=== PATIENT | male | born 1985 | race Caucasian/White ===

== ENCOUNTER 2017-03-07 10:58 | Emergency (ER) | payer OTHER ==
[2017-03-07 11:35] LABS: BASOPHIL 0.1 % (0-2); EOSINOPHIL 0 % (0-5); HCT 42.2 % (42.0-52.0); HGB 14.9 g/dl (13.2-18.0); LYMPHOCYTE 3.5 % (15-48); MCH 28.2 pg (25.0-31.0); MCHC 35.3 g/dL (32.0-36.0); MCV 79.8 fL (78.0-100.0); MONOCYTE 10.2 % (0-12); MPV 9.3 fL (6.0-9.5); NEUTROPHIL 86.2 % (41-80); PLT 234 K/uL (150-400); RBC 5.29 M/uL (4.70-6.00); RDW 13.6 % (11.5-14.0); WBC 15.7 K/uL (4.0-10.5)
[2017-03-07 11:45] LABS: BILIRUBIN 1+ mg/dL (NEGATIVE); BLOOD 3+ Ery/uL (NEGATIVE); COLOR YELLOW (YELLOW); GLUCOSE (U) 1+ mg/dL (NORMAL); KETONE (U) NEGATIVE (NEGATIVE); LEUKOCYTES 2+ Leu/uL (NEGATIVE); NITRITE POSITIVE (NEGATIVE); PROTEIN 2+ mg/dL (NEGATIVE); pH 6.5 (5.0-9.0)
[2017-03-07 11:46] LABS: CLARITY CLOUDY (CLEAR)
[2017-03-07 11:47] LABS: BACTERIA 3+; URINARY RBC RARE; URINARY WBC TNTC
[2017-03-07 11:55] LABS: AMPHETAMINES POSITIVE (NEGATIVE); BENZODIAZEPINES NEGATIVE (NEGATIVE); COCAINE NEGATIVE (NEGATIVE)
[2017-03-07 11:56] LABS: BARBITURATES NEGATIVE (NEGATIVE); MARIJUANA (THC) NEGATIVE (NEGATIVE); METHADONE NEGATIVE (NEGATIVE); TRICYCLIC ANTIDEPRESSANT NEGATIVE (NEGATIVE)
[2017-03-07 11:56] LABS: ALBUMIN 3.8 g/dL (3.5-5.0); BILIRUBIN - TOTAL 0.8 mg/dL (0.1-1.0); CREATININE 1.1 mg/dL (0.7-1.2); GLOBULIN (CALCULATION) 3.4 g/dL (2.2-4.2); POTASSIUM 4.4 mmol/L (3.5-5.1); TOTAL PROTEIN 7.2 g/dL (6.4-8.3)
[2017-03-07 13:08] LABS: CLARITY (FLUID) CLEAR; COLOR (FLUID) COLORLESS; RBC (FLUID) 0 u/L; WBC (FLUID) 0.001 u/L
== END 2017-03-07 17:10 | disposition home or self-care (01) ==
LOC: FER 10:58
PROVIDERS: Emergency Medicine
DX: R51 Headache (principal); N39.0 Urinary tract infection, site not specified; M54.2 Cervicalgia; F17.210 Nicotine dependence, cigarettes, uncomplicated
CPT/HCPCS: 36415; 70450; 71020; 80053; 80305; 81001; 82945; 83605; 84155; 85025; 87040; 87070; 87205; 87450; 87529; 87804; 87899; 89051; 93005; J1170; J2765